=== PATIENT | female | born 1990 | race Two or more races ===

== ENCOUNTER 2024-04-20 08:02 | Emergency (ER) | payer OTHER, MEDICAID, SELFPAY ==
[2024-04-20 08:03] VITALS: BMI 29.6
[2024-04-20 08:17] VITALS: BP 109/65; PULSE 70; RESP 17; TEMP 37.1; O2SAT 97; BMI 26.8
--- NOTE | 2024-04-20 08:22 | XR_ITS ---
Examination: Complete OB ultrasound, less than 14 weeks, transabdominal Date and time of exam: April 20, 2024 0935 hours INDICATIONS: Vaginal bleeding beginning one week ago Technique: Obstetrical ultrasound images less than 14 weeks performed via transabdominal imaging Findings: Uterus 11.0 x 7.1 x 7.1 cm Intrauterine gestational sac in the lower uterine segment No pole No cardiac activity Right ovary 3.6 cm arterial flow Left ovary 2.4 cm arterial flow Mild fluid in the cul-de-sac IMPRESSION: Findings most consistent with spontaneous in progress
--- NOTE | 2024-04-20 08:23 | PD.EDRME ---
Rapid Medical Screening Exam RME Arrival date/time: 04/20/24 08:02 4-year-old female presents emergency department with complaints of vaginal bleeding that began this morning. Patient does report she is currently 8 weeks of gestation. 2 para 1. Chief Complaint: Vaginal Bleeding Time Seen by Provider: 04/20/24 08:05 Vital signs: Vital Signs Temperature 98.7 F 04/20/24 08:17 Pulse Rate 70 04/20/24 08:17 Respiratory Rate 17 04/20/24 08:17 Blood Pressure 109/65 04/20/24 08:17 Pulse Oximetry (%) 97 04/20/24 08:17 Oxygen Delivery Method Room Air 04/20/24 08:17
[2024-04-20 09:20] LABS: Basophils % (Auto) 0 % (0-2.5); Eosinophils % (Auto) 0 % (0-10); Hematocrit 45.6 % (36.0-46.0); Hemoglobin 15.2 g/dL (12.0-16.0); Immature Granulocytes % (Auto) 0 % (0-0); Immature Granulocytes Auto 0.01 Thou/mm3 (0.00-0.00); Lymphocytes # (Auto) 2.4 Thou/mm3 (1.0-4.8); Lymphocytes % (Auto) 34 % (10-50); Mean Corpuscular HGB Conc 33.3 g/dl (31.0-37.0); Mean Corpuscular Hemoglobin 28.5 pg (25.0-35.0); Mean Corpuscular Volume 85 fL (80-100); Monocytes # (Auto) 0.5 Thou/mm3 (0.0-0.8); Monocytes % (Auto) 7 % (0-12); Neutrophils % (Auto) 57 % (37-80); Nucleated Red Blood Cell % 0 /100 WBC (0); Platelet Count 293 Thou/mm3 (140-440); RDW Standard Deviation 39.8 fL (36.4-46.3); Red Blood Count 5.34 Miln/mm3 (4.00-5.20)
[2024-04-20 09:47] LABS: Alanine Aminotransferase 143 U/L (10-49); Albumin, Serum 4.6 gm/dL (3.5-5.0); Albumin/Globulin Ratio 1.5 (1.2-2.2); Alkaline Phosphatase 83 U/L (46-116); Anion Gap 7 (7-16); Aspartate Amino Transferase 114 U/L (0-34); BUN/Creatinine Ratio 8 Ratio (12-20); Bilirubin,Total 0.6 mg/dL (0.3-1.2); Blood Urea Nitrogen 5 mg/dL (9-23); Calcium 9.7 mg/dL (8.3-10.6); Calcium (Corrected) 9.7 mg/dL (8.5-10.1); Carbon Dioxide 28.6 mMol/L (20.0-31.0); Chloride 107 mMol/L (98-107); Creatinine (Component) 0.6 mg/dL (0.6-1.3); Estimated Creatinine Clearance 127.6 mL/min (>60); Glucose 100 mg/dL (74-106); Osmolality,Calculated 282 (275-295); Potassium 3.5 mMol/L (3.4-5.1); Sodium 143 mMol/L (136-145); Total Protein 7.6 gm/dL (5.7-8.2); eGFR > 60 See Note
[2024-04-20 10:05] LABS: Collection Type, Urine Clean Catch
[2024-04-20 10:13] LABS: Beta HCG,Quantitative 32914 mIU/mL (<5.0)
[2024-04-20 10:18] LABS: Bacteria,Urine Rare; Bilirubin,Urine Negative (Negative); Blood,Urine 3+ (Negative); Clarity,Urine Turbid (Clear/Hazy); Color,Urine Lt-Brown (Lt Yel-Yel); Glucose, Urine Negative (Negative); Ketones,Urine Trace (Negative); Leukocyte Esterase,Urine Positive (Negative); Nitrite,Urine Negative (Negative); Protein,Urine 1+ (Neg - Trace); RBC,Urine 2 /hpf (0-3); Specific Gravity,Urine 1.006 (1.001-1.035); Squamous Epithelial Cell,Urine 5 /hpf (0-5); Urobilinogen,Urine Negative mg/dL (0.0-1.0); WBC,Urine 31 /hpf (0-5)
--- NOTE | 2024-04-20 11:07 | EDNOTE_ITS ---
<Statement entered by Traci Blackwell MD - 04/21/24 07:40> As co-signing physician, I was present and available for consult prn. I concur with the plan and care as documented by the midlevel provider. ED OB Contraction Preg RMI/HPI General Chief complaint: Vaginal Bleeding Stated complaint: VAGINAL BLEEDING, 8WKS . Time Seen by Provider: 04/20/24 08:05 Source: patient Arrival date/time: 04/20/24 08:02 This is a 34-year-old female presents to the emergency department with complaints of vaginal bleeding that began last night. She does report she is currently 8 weeks of gestation. 2 para 1. Mild suprapubic pain no dysuria or hematuria. Mode of arrival: ambulatory Limitations: no limitations RME / HPI RME / HPI Narrative: 04/20/24 08:02 4-year-old female presents emergency department with complaints of vaginal bleeding that began this morning. Patient does report she is currently 8 weeks of gestation. 2 para 1. Related Data Home Medications ?Medication ?Instructions ?Recorded ?Confirmed prenat.vits,dot,[id number]-lxypt 1 tab PO QDAY 04/25/20 04/26/20 Allergies Allergy/AdvReac Type Severity Reaction Status Date / Time No Known Allergies Allergy Verified 04/20/24 08:03 Review of Systems Review of Systems Systems Reviewed: All systems reviewed, normal except as documented Narrative Review of Systems: Gen: No fever, no chills, no weight loss EYES: No discharge, no visual changes, no pain HEENT: No ear pain, no congestion, no sore throat PULM: No shortness of breath, no cough, no congestion CV: No chest pain, no dyspnea on exertion, no palpitations GI: No nausea, no vomiting, no diarrhea, no pain, no constipation : No frequency, no urgency, no dysuria, + vaginal bleeding Musc/skel: No joint pain, no back pain Skin: No rash Psyc: No hallucinations, no depression Heme/Lymph: No easy bleeding or bruising tendencies Neuro: No weakness, no headache ED Exam General Limitations: Present no limitations General appearance: Present alert and in no apparent distress Head Head exam: Present atraumatic Eye Eye exam: Present normal appearance, PERRL and EOMI ENT ENT exam: Present normal exam, normal oropharynx and mucous membranes moist Neck Neck exam: Present normal inspection, full ROM and trachea midline Chest Chest inspection: Present normal inspection and symmetric chest wall rise Respiratory Respiratory exam: Present normal lung sounds bilaterally Cardiovascular Cardiovascular exam: Present regular rate, normal rhythm and normal heart sounds Abdominal Exam Abdominal exam: Present soft, tenderness and normal bowel sounds; Absent distention, guarding, rebound or rigidity Abdominal tenderness: Present suprapubic and mild Rectal Exam Rectal exam: Present deferred External exam: Present normal external exam; Absent erythema or tenderness Extremities Exam Extremities exam: Present normal inspection and full ROM Back Exam Back exam: Present normal inspection and full ROM Neurological Exam Neurological exam: Present alert, oriented X3 and CN II-XII intact Psychiatric Psychiatric exam: Present normal affect and normal mood Skin Skin exam: Present warm, dry, intact and normal color Course Quality Measures none Orders Category Date Time Status US OB <= 14 weeks fetus Stat Exams 04/20/24 08:22 Completed ABO/RH Type Stat Lab 04/20/24 08:48 Completed Beta HCG,Quantitative Stat Lab 04/20/24 08:48 Completed CBC Stat Lab 04/20/24 08:48 Completed Comprehensive Metabolic Panel Stat Lab 04/20/24 08:48 Completed Urinalysis Stat Lab 04/20/24 09:53 Completed Urine Culture Stat Lab 04/20/24 09:53 Received Vital Signs Vital signs: Vital Signs Temperature 98.7 F 04/20/24 08:17 Pulse Rate 70 04/20/24 08:17 Respiratory Rate 17 04/20/24 08:17 Blood Pressure 109/65 04/20/24 08:17 Pulse Oximetry (%) 97 04/20/24 08:17 Oxygen Delivery Method Room Air 04/20/24 08:17 Vaginal Bleeding MDM Narrative MDM Narrative: female presents to the ED today for vaginal bleeding. Patient approximately 8 weeks of gestation, ultrasound demonstrated spontaneous in progress. No OB consult indicated at this time. No RhoGam indicated given the patient's Rh status. No antibiotics indicated for UTI or asymptomatic bacteriuria anemia in given urine without leukocytosis, without nitrates or without bacteria. Patient is comfortable with plan patient will follow up with OB in 2 days for repeat bHCG levels, and/or ultrasound. Strict return to ED precautions given. Patient verbalized understanding Patient conseled that the exam and treatment received today in the Emergency Department was administered on an emergency basis and not intended to be a substitute for complete evaluation at a doctor?s office. Follow-up and re- examination by your doctor is essential to complete medical care because it is often impossible to recognize and treat all elements of injury in one visit. ED precautions given. Patient data External records reviewed:: [facility] previous records Clinical information provided by:: patient Social determinants that could affect healthcare access:: none Patient has the following chronic illnesses:: no How is presenting disease/condition affected by chronic disease/condition?: no chronic disease Evaluation data The following diagnostics were reviewed and interpreted by me:: lab results and radiology exam(s) Lab and/or radiology exams considered but not ordered:: no Interpretation Summary: Examination: Complete OB ultrasound, less than 14 weeks, transabdominal Date and time of exam: April 20, 2024 0935 hours INDICATIONS: Vaginal bleeding beginning one week ago Technique: Obstetrical ultrasound images less than 14 weeks performed via transabdominal imaging Findings: Uterus 11.0 x 7.1 x 7.1 cm Intrauterine gestational sac in the lower uterine segment No pole No cardiac activity Right ovary 3.6 cm arterial flow Left ovary 2.4 cm arterial flow Mild fluid in the cul-de-sac IMPRESSION: Findings most consistent with spontaneous in progress Medications / Prescriptions Medications or Prescriptions considered but not ordered:: no Medication administrations:: no Consultations Consultation(s) initiated? (list below): No Diagnosis Vaginal Bleeding Differential Diagnosis: missed , threatened , incomplete and vaginal bleeding Most likely diagnosis given after review of the tests above:: Spontaneous Admission Indicated Admission indicated?: not indicated Admission Request Was there a request for admission?: No Disposition Plan Disposition Plan: Discharge Discharge Attestation Discharge Attestation: The patient and all family members were given an opportunity to ask questions and understood the discharge instructions. Discharge instructions specifically effects, indications for sooner follow up or return to the emergency department, and the expected course of current diagnosis. Patient condition: Stable Discharge Plan Plan Patient Disposition: HOME (Self Care) Patient condition on transfer: Stable Prescriptions/Referrals Prescriptions/Med Rec: No Action Vitamin Tablet 1 tab PO QDAY Referrals: No Primary/Family,Physician [Primary Care Provider] - In 1 week Problem List Clinical Impression: Threatened Patient/Caregiver Discharge Instructions Discharge Activity: activity as tolerated Education Materials: ED Possible Miscarriage ... Additional Instructions: [place] comentamos, parece que est?s sufriendo un aborto espont?shin. Necesitar? christopher visita de seguimiento con un ginec?logo/obstetra en un par de d?as para realizar un seguimiento. Necesitar? repetir la ecograf?a y el nivel de hCG. Dentro de christopher semana. Si presenta fiebre, n?useas, v?mitos y s?ntomas que empeoran, regrese al departamento de emergencias lo antes posible. As discussed it appears that you are having a spontaneous miscarriage. You will need to follow-up with retail store associate/life science teacher in a couple days for follow-up. You will need a repeat ultrasound and hCG level Within a week. If you develop fever, nausea vomiting worsening symptoms please return to the emergency department soon as possible. Print Language: Telugu Stand Alone Forms: Perla Award Info., Work/School Release, Patient Portal Info Letter SANTOSH/HANNY Supervising Physician SANTOSH/HANNY Supervising Physician: Dr. Arreola
== END 2024-04-20 11:18 | disposition home or self-care (01) ==
PROVIDERS: Nurse Practitioner Primary Care; Emergency Provider Emergency Medicine
DX: O20.0 Threatened abortion (principal); Z3A.08 8 weeks gestation of pregnancy
CPT/HCPCS: 36415; 76801; 80053; 81001; 84702; 85025; 86900; 86901; 87086; 99284

== ENCOUNTER 2025-02-14 19:06 | Emergency (ER) | payer OTHER, MEDICAID, SELFPAY ==
[2025-02-14 19:07] VITALS: BMI 31.1
[2025-02-14 19:16] VITALS: BP 127/78; PULSE 78; RESP 18; TEMP 36.9; O2SAT 97
--- NOTE | 2025-02-14 19:33 | XR_ITS ---
Examination: Complete OB ultrasound, less than 14 weeks, transabdominal Date and time of exam: February 14, 2025, 1949 hours INDICATIONS: Pelvic pain and vaginal bleeding onset today Technique: Obstetrical ultrasound images less than 14 weeks performed via transabdominal imaging Findings: A normal shaped single intrauterine gestation is present in the uterus. CRL 2.5 cm corresponds to 9 weeks 2 days gestational age Subchorionic hemorrhage, 2 in number, the largest 32 x 23 mm Ultrasonographic survey of visible strength at structures unremarkable. Amniotic fluid volume appears appropriate for this estimated gestational age. Right ovary 3.6 cm arterial flow Left ovary 4.5 cm arterial flow 23 x 24 mm cyst. IMPRESSION: Viable intrauterine gestation 9 weeks 2 days Consider short-term follow-up pelvic sonography given the subchorionic hemorrhages
--- NOTE | 2025-02-14 19:33 | PD.EDRME ---
Rapid Medical Screening Exam [facility] Arrival date/time: 02/14/25 19:06 34F at approximately 9 weeks and with no significant PMH presents with 1 day of pelvic pain/cramping and vaginal spotting. Blood type is A+. Chief Complaint: Vaginal Bleeding Vital signs: Vital Signs Temperature 98.5 F 02/14/25 19:16 Pulse Rate 78 02/14/25 19:16 Respiratory Rate 18 02/14/25 19:16 Blood Pressure 127/78 02/14/25 19:16 Pulse Oximetry (%) 97 02/14/25 19:16 Oxygen Delivery Method Room Air 02/14/25 19:16 Exam: Well-appearing Clinical Impression: miscarriage vs vaginal bleeding vs vs subchorionic hemorrhage
[2025-02-14 20:11] LABS: Basophils # (Auto) 0.1 Thou/mm3 (0.0-0.2); Basophils % (Auto) 0 % (0-2.5); Eosinophils # (Auto) 0.2 Thou/mm3 (0.0-0.5); Eosinophils % (Auto) 2 % (0-10); Hematocrit 39.8 % (36.0-46.0); Hemoglobin 13.3 g/dL (12.0-16.0); Immature Granulocytes Auto 0.06 Thou/mm3 (0.00-0.00); Lymphocytes # (Auto) 3.0 Thou/mm3 (1.0-4.8); Lymphocytes % (Auto) 24 % (10-50); Mean Corpuscular HGB Conc 33.4 g/dl (31.0-37.0); Mean Corpuscular Hemoglobin 28.9 pg (25.0-35.0); Mean Corpuscular Volume 86 fL (80-100); Monocytes # (Auto) 0.9 Thou/mm3 (0.0-0.8); Monocytes % (Auto) 7 % (0-12); Neutrophils # (Auto) 8.4 Thou/mm3 (1.8-7.7); Neutrophils % (Auto) 66 % (37-80); Nucleated Red Blood Cell # 0.00 Thou/mm3 (0.00-0.00); Nucleated Red Blood Cell % 0 /100 WBC (0); Platelet Count 298 Thou/mm3 (140-440); RDW Standard Deviation 40.2 fL (36.4-46.3); Red Blood Count 4.61 Miln/mm3 (4.00-5.20); White Blood Count 12.6 Thou/mm3 (3.6-11.0)
[2025-02-14 20:36] LABS: Alanine Aminotransferase 34 U/L (10-49); Albumin, Serum 4.4 gm/dL (3.5-5.0); Albumin/Globulin Ratio 1.6 (1.2-2.2); Alkaline Phosphatase 75 U/L (46-116); Anion Gap 10 (7-16); Aspartate Amino Transferase 20 U/L (0-34); BUN/Creatinine Ratio 18 Ratio (12-20); Bilirubin,Total 0.4 mg/dL (0.3-1.2); Blood Urea Nitrogen 9 mg/dL (9-23); Calcium 9.4 mg/dL (8.3-10.6); Calcium (Corrected) 9.4 mg/dL (8.5-10.1); Carbon Dioxide 24.3 mMol/L (20.0-31.0); Chloride 105 mMol/L (98-107); Creatinine (Component) 0.5 mg/dL (0.6-1.3); Estimated Creatinine Clearance 152.4 mL/min (>60); Globulin 2.8 gm/dL (2.3-3.5); Glucose 87 mg/dL (74-106); Osmolality,Calculated 275 (275-295); Potassium 3.8 mMol/L (3.4-5.1); Sodium 139 mMol/L (136-145); Total Protein 7.2 gm/dL (5.7-8.2); eGFR > 60 See Note
--- NOTE | 2025-02-14 21:46 | EDNOTE_ITS ---
ED General RME/HPI General Chief complaint: Vaginal Bleeding Stated complaint: VAGINAL BLEEDING, 9WK Time Seen by Provider: 02/14/25 20:48 Arrival date/time: 02/14/25 19:06 CC: Vaginal spotting HPI onset this afternoon, mild lower external abdominal cramping, no back pain. Patient is a G3, P1 estimated 9 weeks denies fever chills chest pain shortness of breath or difficulty breathing. RME / HPI RME / HPI narrative: 02/14/25 19:06 34F at approximately 9 weeks and with no significant PMH presents with 1 day of pelvic pain/cramping and vaginal spotting. Blood type is A+. Exam: Well-appearing Impression: miscarriage vs vaginal bleeding vs vs subchorionic hemorrhage Related Data Home Medications ?Medication ?Instructions ?Recorded ?Confirmed prenat.vits,dot,xzt-[id number]-gxvsd 1 tab PO QDAY 04/25/20 04/26/20 Allergies Allergy/AdvReac Type Severity Reaction Status Date / Time No Known Allergies Allergy Verified 02/14/25 19:07 Review of Systems Review of Systems Narrative Review of Systems: GEN: No fever, no chills, no weight loss EYES: No discharge, no visual changes, no pain HEENT: No ear pain, no congestion, no sore throat PULM: No shortness of breath, no cough, no congestion CV: No chest pain, no dyspnea on exertion, no palpitations GI: No nausea, no vomiting, no diarrhea, no pain, no constipation : No frequency, no urgency, no dysuria MUSC/SKEL: No joint pain, no back pain SKIN: No rash PSYCH: No hallucinations, no depression HEME/LYMPH: No easy bleeding or bruising tendencies NEURO: No weakness, no headache Past Medical History Past Medical History NEUROLOGIC: Negative Neurological Disorders CARDIAC: Negative Cardiac Disorders or Congestive Heart Failure RESPIRATORY: Negative Chronic Obstructive Pulmonary Disease (COPD) GASTROINTESTINAL: Negative Gastrointestinal Disorders, Hepatitis or Colorectal Cancer GENITOURINARY: Negative Genitourinary Disorders or Renal Disease REPRODUCTIVE: Negative Breast Cancer MUSCULOSKELETAL: Negative Musculoskeletal Disorders or Bone Cancer ENDOCRINE: Negative Endocrine Disorders, Diabetes Mellitus Type 1 or Diabetes Mellitus Type 2 HEMATOLOGIC: Positive Blood Disorders and Anemia (during ) OTHER HISTORY: Positive Chicken Pox (as a child 7yrs); Negative Hospitalization, Autoimmune Disease, Down Syndrome, Developmental Delay, Shingles, Falls, Blood Transfusions, Blood Transfusion Reaction, Anesthesia Reactions, Organ Transplant, Chemotherapy, Radiation Therapy, Hyperba home Therapy, MRSA, VRSA, Vancomycin-Resistant Enterococci, Human Immunodeficiency Virus (HIV), Measles, Mumps, Rubella (Monegasque Measles), Pertussis, Clostridium Difficile, Cancer, Breast Cancer, Cervical Cancer, Colorectal Cancer, Lung Cancer or Ovarian Cancer Family History FAMILY HISTORY: Positive Family Psychiatric Problems (uncle, schizophrenia), Family Cardiac Disorders (father, htn) and Family Cancer (grandmother, stomach); Negative Family Respiratory Disorders, Family Gastrointestinal Problems, Family Surgery or Family Anesthesia Reaction Surgical History SURGICAL: Negative Section or Organ Transplant Social History SMOKING STATUS: Never smoker ED Exam Narrative Physical exam: [General: Not in any acute distress Head normocephalic HEENT: Within acceptable limits Neck is supple nontender Chest equal chest rise nontender to palpation Respiratory: Clear to auscultation no wheezes crackles or rubs CV: Rate rhythm is regular no murmurs rubs or clicks Abdomen is soft nontender no masses positive bowel sounds all 4 quadrants Back: No CVA tenderness no spinous process tenderness from cervical spine thoracic and lumbar spine Skin: Intact no petechiae rash induration ulceration or crepitus Extremities: Moving all extremity against resistance cap refill less than 2 seconds neurosensory intact Neuro: Awake alert oriented x3 Glascow coma 15 no focal deficits] Course Quality Measures none Orders Category Date Time Status US OB <= 14 weeks fetus Stat Exams 02/14/25 19:33 Completed Beta HCG,Quantitative Stat Lab 02/14/25 19:46 Completed CBC Stat Lab 02/14/25 19:46 Completed CMP [Comprehensive Metabolic Panel] Stat Lab 02/14/25 19:46 Completed Vital Signs Vital signs: Vital Signs Temperature 98.5 F 02/14/25 19:16 Pulse Rate 78 02/14/25 19:16 Respiratory Rate 18 02/14/25 19:16 Blood Pressure 127/78 02/14/25 19:16 Pulse Oximetry (%) 97 02/14/25 19:16 Oxygen Delivery Method Room Air 02/14/25 19:16 Discharge Plan Plan Patient Disposition: HOME (Self Care) Patient condition on transfer: Stable Prescriptions/Referrals Prescriptions/Med Rec: No Action Vitamin Tablet 1 tab PO QDAY Referrals: No Primary/Family,Physician [Primary Care Provider] - In 1 week Problem List Clinical Impression: Vaginal bleeding, Subchorionic hemorrhage, Patient/Caregiver Discharge Instructions Education Materials: Bleeding During Early Print Language: Azeri Stand Alone Forms: Perla Award Info., Work/School Release, Patient Portal Info Letter SANTOSH/HANNY Supervising Physician PATEL Supervising Physician: Miguel WHITE Clinical Information Provided by: patient and spouse Medical Records reviewed [facility] Meds/Rx considered, not ordered None Labs/Rad/Tests considered, not ordered None Chronic Illness/Social Conditions which may negatively complicate care or outcome(s)-explain: None or not applicable EKG EKG not done Labs Labs: interpreted by me Lab(s) Interpretation(s): CBC shows a mild leukocytosis of 12.6 no anemia thrombocytopenia CMP shows no significant electrolyte imbalances renal impairment transaminitis or T. bili elevation Beta-hCG is 170,415. Patient is a positive Imaging Imaging interpretation: interpreted by me Imaging Interpretation(s): Ultrasound shows a single IUP at 9 weeks and 2 days. 2 small subchorionic hemorrhages. Diagnosis Differential Diagnosis ED Complaint MDM: SAB first trimester vaginal bleeding subchorionic hemorrhage
[2025-02-14 22:14] VITALS: BP 124/86; PULSE 69; RESP 18; TEMP 36.6; O2SAT 99
== END 2025-02-14 22:05 | disposition home or self-care (01) ==
PROVIDERS: Physician Assistant; Emergency Provider Emergency Medicine
DX: O20.8 Other hemorrhage in early pregnancy (principal); Z3A.09 9 weeks gestation of pregnancy
CPT/HCPCS: 36415; 76801; 80053; 84702; 85025; 99283